=== PATIENT | male | born 1975 | race Caucasian/White ===

== ENCOUNTER 2019-06-19 16:22 | Emergency (ER) | payer OTHER ==
[2019-06-19 17:09] VITALS: BP 132/83
== END 2019-06-19 17:07 | disposition home or self-care (01) ==
LOC: ED 16:22
DX: S63.602A Unspecified sprain of left thumb, initial encounter (principal); F17.210 Nicotine dependence, cigarettes, uncomplicated; Z88.8 Allergy status to other drugs, medicaments and biological substances; W22.8XXA Striking against or struck by other objects, initial encounter; Y99.0 Civilian activity done for income or pay
CPT/HCPCS: 15978; A4570